=== PATIENT | male | born 1940 ===

== ENCOUNTER 2025-06-02 11:16 | Outpatient (AMB) | payer MEDICARE, BC, SELFPAY ==
--- NOTE | 2025-06-02 11:21 | MHC.OFFVIS ---
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 He is presenting with management of his chronic neurological and pulmonary conditions. His history includes COPD, managed with a Trelegy inhaler. Parkinson's Disease is currently managed with Carbidopa-Levodopa three times a day. The patient reports stable control with these medications, though he inquires about drug tolerance. Insomnia with vivid dreams has been effectively treated with Gabapentin. Anxiety episodes of varying intensities are managed with Zoloft and Alprazolam. The patient lives independently, with medical needs monitored remotely by his daughter. While he experiences some memory challenges, these are not significantly deteriorated according to his daughter. He is increasingly conscious of balance issues and the risk of falls. Review of Systems Narrative - Neurological: Reports stable control of Parkinson?s symptoms; denies worsening motor dysfunction. - Respiratory: Denies exacerbation of COPD symptoms; maintained on Trelegy inhaler. - Sleep: Reports insomnia, managed with Gabapentin; vivid dreams present. - Psychiatric: Reports variability in anxiety levels, managed with Zoloft and Alprazolam; memory concerns present. - Musculoskeletal: Reports balance difficulties. - Miscellaneous: Difficulty with wearing shoes. Physical Exam Neuro Other: Mental Status: Alert and oriented to person, place, and time. Normal attention. Normal spontaneous speech, fluency, and comprehension. Cranial Nerves: CN II: Visual ayala full to confrontation, visual acuity intact. CN III, IV, : Pupils equal, round, reactive to light and accommodation. Extraocular movements are normal. CN V: Facial sensation is normal. CN VII: Facial movements symmetrical. CN VIII: Hearing intact to bedside conversation is normal. CN IX, X: Palate elevates symmetrically. CN XI: Shoulder shrug and head turn symmetrical. CN XII: Tongue midline without atrophy or fasciculations. Facial expression blinking or minimally diminished. There was mild bilateral resting hand tremor. He is walking in a cautious gait using a cane. Speech: Normal; no dysarthria or tremor. Assessment & Plan Assessment & Plan (1) Dementia with Lewy bodies: Code(s): G31.83 - Neurocognitive disorder with Lewy bodies; F02.80 - Dementia in other diseases classified elsewhere, unspecified severity, without behavioral disturbance, psychotic disturbance, mood disturbance, and anxiety Category: Medical Qualifiers: Dementia severity: mild Dementia behavioral or psychological symptom: with other behavioral disturbance Qualified Code(s): G31.83 - Neurocognitive disorder with Lewy bodies; F02.A18 - Dementia in other diseases classified elsewhere, mild, with other behavioral disturbance (2) Paranoia: Code(s): F22 - Delusional disorders Category: Medical (3) REM sleep behavior disorder: Code(s): G47.52 - REM sleep behavior disorder Category: Medical Plan Impression: a: Parkinsonism b: Anxiety/paranoia/forgetfulness, probably related to developing dementia of Lewy body type c: REM sleep behavior disorder Rec: a; carbidopa/levodopa 25/100, one, 3 times a day b: Gabapentin 100mg one at bedtime Medications: New carbidopa-levodopa 25-100 mg (Sinemet) 1 tab PO TID 270 tabs 1RF gabapentin 100 mg PO BEDTIME 90 caps 1RF Coding Level of Care Code Est Pt Level 4 (10377) Diagnoses Mild Lewy body dementia with other behavioral disturbance G31.83; F02.A18 Dementia severity: mild Dementia behavioral or psychological symptom: with other behavioral disturbance Paranoia F22 REM sleep behavior disorder G47.52
--- OUTSIDE RECORDS SUMMARY | 2025-06-02 13:44 | XMS_ITS | Clinical Summary ---
Author Organization [facility] Address [address] [place] [address] Phone Care Team Providers Care Orthotic And Prosthetic Technician Name Role Phone Higinio Hernandez MD Primary Care Provider [phone] Allergies No known active allergies Medications simvastatin (ZOCOR) 40 mg tablet 1 (one) time each day at the same time. Active sertraline (ZOLOFT) 100 mg tablet 1 (one) time each day at the same time. Active oxyBUTYnin XL (DITROPAN-XL) 10 mg 24 hr tablet Orally Active naproxen (NAPROSYN) 500 mg tablet every 12 hours. 06/16/20 24 Active gabapentin (NEURONTIN) 100 mg capsule Take 1 capsule (100 mg total) by mouth. at bedtime 06/03/20 24 Active carbidopa-levo dopa (SINEMET) 25-100 mg per tablet Take 1 tablet by mouth. 06/03/20 24 Active atorvastatin (LIPITOR) 40 mg tablet Take 1 tablet (40 mg total) by mouth 1 (one) time each day. 09/30/19 25 Active ALPRAZolam (XANAX) 0.5 mg tablet Take 1 tablet (0.5 mg total) by mouth 1 (one) time each day if needed. Max Daily Amount: 0.5 mg 10/20/19 25 Active acetaminophen (TYLENOL) 325 mg tablet Take 2 tablets (650 mg total) by mouth. 03/29/20 22 Active fluticasone-um eclidinium-dana anterol (Trelegy Ellipta) 100-62.5-25 mcg inhaler Inhale 1 puff (100 mcg total) by mouth 1 (one) time each day. Rinse mouth with water after use to reduce aftertaste and incidence of candidiasis. Do not swallow. 1 each 02/04/20 026 Active umeclidinium-v ilanteroL (Anoro Ellipta) 62.5-25 mcg/actuation inhaler Inhale 1 puff by mouth 1 (one) time each day. 1 each 11/07/19 25 025 Discontinued Encounters Date Type Department Care Team Description 05/14/2025 2:15 PM EDT Office Visit Pulmonology - [address] [place] [address] Ricki Solis MD Chronic obstructive pulmonary disease, unspecified COPD type (CMS/HCC V24, CMS/HCC V28) (Primary Dx) from Last 3 Months Medical History Medical History Date Comments Asthma DX:Asthma Social History Tobacco Use Types Packs/Day Years Used Date Smoking Tobacco: Former Smokeless Tobacco: Never Alcohol Use Standard Drinks/Week Comments Never 0 (1 standard drink = 0.6 oz pur e alcohol) Sex and Gender Information Value Date Recorded Sex Assigned at Not on file Legal Sex Male 1:37 PM EST Gender Identity Not on file Sexual Orientation Not on file Obstetrics History Last Filed Vital Signs Vital Sign Reading Time Taken Comments Blood Pressure 114/64 05/14/2025 2:14 PM EDT Pulse 74 05/14/2025 2:14 PM EDT Temperature 36.4 C (97.5 F) 05/14/2025 2:14 PM EDT Respiratory Rate 20 05/14/2025 2:14 PM EDT Oxygen Saturation 95% 05/14/2025 2:14 PM EDT Inhaled Oxygen Concentration - - Weight 75 kg (165 lb 6.4 oz) 11/06/2024 1:56 PM EDT Height 172.7 cm (5' 8 ) 11/06/2024 1:56 PM EDT Body Mass Index 25.15 11/06/2024 1:56 PM EDT Plan of Treatment Health Maintenance Due Date Last Done Comments DTaP,Tdap,and Td Vaccines (1 - Tdap) 1961 Pneumococcal Vaccine: 50+ Years (1 of 2 - PCV) 1961 Zoster Vaccines (1 of 2) 1992 Cholesterol Screening (Lipid Panel) 07/07/2022 Falls Risk Assessment 07/07/2022 Medicare Annual Wellness Visit 07/07/2022 Social Influencers of Health Screening 07/07/2022 Depression Screening 07/29/2024 RSV Immunization Adult Patients Completed 04/05/2023 COVID-19 Vaccine Completed 11/23/2024, , 05/28/2023, Additional history exists Influenza Vaccine Completed 05/03/2025, , 04/18/2023, Additional history exists HIB Vaccines Aged Out No longer eligi ble based on patient's age to complete this topic HPV Vaccines Aged Out No longer eligi ble based on patient's age to complete this topic Hepatitis A Vaccines Aged Out No long er eligible based on patient's age to complete this topic Hepatitis B Vaccines Aged Out No long er eligible based on patient's age to complete this topic IPV Vaccines Aged Out No longer eligi ble based on patient's age to complete this topic MMR Vaccines Aged Out No longer eligi ble based on patient's age to complete this topic Meningococcal ACWY Vaccine Aged Out N o longer eligible based on patient's age to complete this topic Meningococcal B Vaccine Aged Out No l onger eligible based on patient's age to complete this topic RSV Immunization Patients Under 20 months Aged Out No longer eligible based on patient's age to complete this topic Varicella Vaccines Aged Out No longer eligible based on patient's age to complete this topic Insurance MEDIC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 Health Care Decision (hx) 11/27/2013 AD MCNEIL DIRECTIVE Health Care Decision (hx) 11/27/2013 AD MCNEIL DIRECTIVE Health Care Decision (hx) 11/27/2013 AD MCNEIL DIRECTIVE Health Care Decision (hx) 11/27/2013 AD MCNEIL DIRECTIVE Health Care Decision (hx) 11/27/2013 AD MCNEIL DIRECTIVE Health Care Decision (hx) 11/27/2013 AD MCNEIL DIRECTIVE Health Care Decision (hx) 11/27/2013 AD MCNEIL DIRECTIVE Health Care Decision (hx) 11/27/2013 AD MCNEIL DIRECTIVE Health Care Decision (hx) 11/27/2013 AD MCNEIL DIRECTIVE Health Care Decision (hx) 11/27/2013 AD MCNEIL DIRECTIVE Health Care Decision (hx) 11/27/2013 AD MCNEIL DIRECTIVE Health Care Decision (hx) 11/27/2013 AD MCNEIL DIRECTIVE Care Teams Orthotic And Prosthetic Technician Relationship Specialty Start Date End Date Higinio Hernandez MD [address] [place] [address] PCP - General Internal Medicine 07/17/19
--- OUTSIDE RECORDS SUMMARY | 2025-06-02 13:44 | XMS_ITS | Clinical Summary ---
Author Organization [facility] Address [address] [employer] [address] [address] Phone Care Team Providers Care Magneto Electrician Name Role Phone Higinio Hernandez MD Primary Care Provider [phone] Social History Tobacco Use Types Packs/Day Years Used Date Smoking Tobacco: Never Assessed Education Answer Date Recorded Are you interested in more education? Not on akanksha e 11/24/2022 Are you concerned about learning? Not on file 11/24/2022 No 11/24/2022 No 11/24/2022 Digital Access Answer Date Recorded No 12/25/2022 No 12/25/2022 Reliable internet access at home? Not on file 12/25/2022 Device with a working camera? Not on file Sex and Gender Information Value Date Recorded Sex Assigned at Not on file Legal Sex Male 8:42 AM EDT Gender Identity Not on file Sexual Orientation Not on file Plan of Treatment Health Maintenance Due Date Last Done Comments Adult Td,Tdap Booster 1942 DEPRESSION SCREENING 1954 PNEUMOCOCCAL VACCINES (50+ y ears) (1 of 1 - PCV) 1992 ZOSTER VACCINES (1 of 2) 1992 RSV VACCINE (1 - 1-dose 75+ series) 2017 INFLUENZA VACCINE (#1) 2025 COVID-19 VACCINE ( - 2024-2 6 season) 2025 HEPATITIS A VACCINES Aged Out No long er eligible based on patient's age to complete this topic HIB VACCINES Aged Out No longer eligi ble based on patient's age to complete this topic MENINGOCOCCAL VACCINES (ACWY) Aged Out No longer eligible based on patient's age to complete this topic MENINGOCOCCAL VACCINES (B) Aged Out N o longer eligible based on patient's age to complete this topic Medical Devices Not [place] [address] [email or web address] [place] [address] [email or web address] [place] [address] [email or web address] [place] [address] [email or web address] [place] [address] [address] [place] [address] [email or web address] [place] [address] [place] [address] [place] [address] Care Teams Magneto Electrician Relationship Specialty Start Date End Date Higinio Hernandez MD [address] [address] [email or web address] PCP - General 12/04/23 Additional Source Comments The information contained in this document represents components of the legal health record. It is not the complete legal health record.[facility]
== END 2025-06-02 11:36 | disposition home or self-care (01) ==
PROVIDERS: PCP Internal Medicine; Referring Provider Internal Medicine; Visit Provider Psychiatry & Neurology Neurology
DX: G31.83 Neurocognitive disorder with Lewy bodies (principal); F02.A18 Dementia in other diseases classified elsewhere, mild, with other behavioral disturbance; F22 Delusional disorders; G47.52 REM sleep behavior disorder
CPT/HCPCS: 99214

== ENCOUNTER → 2025-06-02 11:16 | Outpatient (BNVA) | payer MEDICARE, BC, SELFPAY | PROVIDERS: PCP Internal Medicine; Referring Provider Internal Medicine; Visit Provider Psychiatry & Neurology Neurology | DX: G31.83 Neurocognitive disorder with Lewy bodies (principal); F02.A18 Dementia in other diseases classified elsewhere, mild, with other behavioral disturbance; F22 Delusional disorders; G47.52 REM sleep behavior disorder | CPT/HCPCS: 99212 ==